=== PATIENT | female | born 1995 | race Two or more races ===

== ENCOUNTER 2017-11-25 14:43 | Emergency (ER) | payer MEDICAID ==
[~2017-11-25] VITALS: Ht 165.1 cm; Wt 104.3 kg
[2017-11-25 16:26] LABS: Albumin 3.7 g/dL (3.4-5.0); Bilirubin, Total 0.6 mg/dL (0.2-1.0); Calcium 8.6 mg/dL (8.5-10.1); Potassium 4.3 mmol/L (3.5-5.1); Total Protein 8.5 g/dL (6.4-8.2)
[2017-11-25 16:50] LABS: Basophils # (auto) 0 uL; Basophils % (auto) 0.4 % (0.0-2.0); Eosinophils # (auto) 0 uL; Eosinophils % (auto) 0.6 % (0.0-7.0); Hemoglobin 12.8 g/dL (12.2-16.2); Lymphocytes # (auto) 1.6 uL; Mean Corpuscular Hgb Conc. 32.7 g/dL (32.0-36.0); Mean Corpuscular Volume 85.5 fL (80.0-100.0); Monocytes # (auto) 0.3 uL; Monocytes % (auto) 6.2 % (0.0-12.0); Neutrophils # (auto) 3.6 uL; Neutrophils % (auto) 63.8 % (37.0-80.0); Nucleated Red Blood Cells % 0.1 %; Platelet Count (auto) 355 10^3/uL (140-450); Red Blood Cells 4.56 10^6/uL (4.0-5.20); Red Cell Distribution Width 14.6 % (11.8-14.3); White Blood Cell 5.7 10^3/uL (4.4-10.8)
[2017-11-25 19:41] VITALS: BP 117/85
== END 2017-11-25 19:46 | disposition home or self-care (01) ==
LOC: ER 14:43
DX: N93.9 Abnormal uterine and vaginal bleeding, unspecified (principal)
CPT/HCPCS: 36415; 76856; 80053; 84702; 85025

== ENCOUNTER 2019-04-30 15:37 | Emergency (ER) | payer SELFPAY ==
[~2019-04-30] VITALS: Ht 162.6 cm; Wt 104.3 kg
[2019-04-30 19:20] LABS: Urine Bacteria FEW /hpf (None Seen); Urine Blood Negative /uL (Negative); Urine Mucus FEW (None Seen); Urine Specific Gravity 1.022 (1.001-1.035); Urine WBC 2 /hpf (0 - 5)
[2019-04-30 19:57] LABS: Basophils # (auto) 0 uL; Basophils % (auto) 0.3 % (0.0-2.0); Eosinophils # (auto) 0 uL; Eosinophils % (auto) 0.1 % (0.0-7.0); Hematocrit 40.3 % (36.0-46.0); Hemoglobin 13.3 g/dL (12.2-16.2); Lymphocytes % (auto) 23.3 % (10.0-50.0); Mean Corpuscular Hemoglobin 28.4 pg (28.0-32.0); Mean Corpuscular Hgb Conc. 33.1 g/dL (32.0-36.0); Mean Corpuscular Volume 85.9 fL (80.0-100.0); Monocytes # (auto) 0.5 uL; Monocytes % (auto) 5.8 % (0.0-12.0); Neutrophils # (auto) 6.2 uL; Neutrophils % (auto) 70.5 % (37.0-80.0); Platelet Count (auto) 324 10^3/uL (140-450); Red Blood Cells 4.69 10^6/uL (4.0-5.20); White Blood Cell 8.8 10^3/uL (4.4-10.8)
[2019-04-30 20:03] LABS: Calcium 8.1 mg/dL (8.5-10.1); Potassium 3.7 mmol/L (3.5-5.1)
[2019-04-30 20:06] LABS: Albumin 3.7 g/dL (3.4-5.0)
[2019-04-30 20:14] LABS: Bilirubin, Total 0.6 mg/dL (0.2-1.0); CRP High Sensitivity 2.19 mg/dL (< 0.3); Total Protein 8.5 g/dL (6.4-8.2)
[2019-05-01 01:45] VITALS: BP 111/73
== END 2019-05-01 03:12 | disposition left against medical advice (07) ==
LOC: ER 15:37
DX: R53.1 Weakness (principal); Z53.21 Procedure and treatment not carried out due to patient leaving prior to being seen by health care provider
CPT/HCPCS: 36415; 80053; 81001; 85025; 86141

== ENCOUNTER 2022-03-26 22:27 | Emergency (ER) | payer MEDICAID ==
[~2022-03-26] VITALS: Ht 162.6 cm; Wt 115.4 kg
[2022-03-26 23:38] LABS: Urine Bacteria NONE SEEN /hpf (None Seen); Urine Blood Negative /uL (Negative); Urine Specific Gravity 1.015 (1.001-1.035); Urine WBC <1 /hpf (0 - 5)
[2022-03-27] MEDS ORDERED: PERCOT PO (03:42)
[2022-03-27] MEDS ORDERED: CIPR-173 PO (03:42)
[2022-03-27] MEDS ORDERED: METR500T PO (03:42)
[2022-03-27 04:00] VITALS: BP 141/64
== END 2022-03-27 04:04 | disposition home or self-care (01) ==
LOC: ER 22:27
DX: K57.32 Diverticulitis of large intestine without perforation or abscess without bleeding (principal)
CPT/HCPCS: 74176; 81001